=== PATIENT | female | born 1940 | race Caucasian/White ===

== ENCOUNTER 2019-03-31 06:00 | Outpatient (CLI) | payer MEDICARE, SELFPAY ==
--- NOTE | 2019-04-01 15:28 | ONCRAD EPV_ITS ---
Radiation Oncology Established Patient Visit Patient: DOUGLAS MR#: [id number] : 1940> Age: 78> Sex: Female> Account #: Dictated by: Dr. Conrad Mcbride Date of Service: 03/31/2019 Referring Physician(s) : Terell Castillo Diagnosis: C44.319 - Basal cell carcinoma of skin of other parts of face, Diagnosed 08/05/2018 (Active) Chief Complaint / History of Present Illness: This is a 78-year-old female with a large skin lesion in the right cheek that is pathologically confirmed to be basal cell carcinoma. The patient has declined surgical excision. Instead she received definitive RT with electron beam to a total dose of 55Gy completed on 10/26/2018. She comes in for a followup today. There is no evidence of skin lesion in the right cheek except some pigmentation and fibrosis. She is doing well with no complaints. Current Medications: Bumetanide, citalopram Hydrobromide, doxazosin Mesylate, gabapentin, glipiZIDE XL, hydroCHLOROthiazide, metoprolol Tartrate, simvastatin, synjardy XR, verapamil HCl ER, warfarin Sodium. Allergies: No Known Allergies Current Complaints / Review of Systems: Constitutional - Denies lack of appetite, fatigue, fever and night sweats. Eyes - Denies blurred vision. ENMT - Denies dysphagia, ear pain, mouth dryness, stomatitis and altered taste. Neck - Denies neck pain. Integumentary - Denies rash. Breasts - Denies pain. Cardiovascular - Complains of edema in both ankles and feet. Denies arrhythmias and chest pain. Respiratory - Denies cough, dyspnea and wheezing. Gastrointestinal - Complains of heartburn / dyspepsia. Denies abdominal pain, constipation, diarrhea, melena / GI bleeding, nausea and vomiting. Genitourinary (F) - Denies dysuria, frequency and urgency. Musculoskeletal - Denies arthritis, bone pain and joint pain. Neurologic - Complains of abnormal gait. Denies dizziness and headaches. Endocrine - Complains of Type 2 diabetes. Denies thyroid disease. Hematologic/Lymphatic - Denies tender or enlarged lymph nodes.. Vital Signs: Performed on 03/31/2019 8:54 AM BMI - 36.873 kg/m2 (high), Height - 62.00 in, Weight - 201.6 lbs, Temperature - 97.0 f, Pulse - 85, Respiration - 18, O2 Sat - 96 %, Pain - 0, Fatigue - 0 and BP - 150/ 75 mm(hg)(high/). Physical Exam: General: Alert and oriented x 3. No acute distress. HEENT: Normocephalic, atraumatic. No skin lesion in the right cheek and postauricular area except some pigmentation and fibrosis. Oral cavity is clear without lesions, masses or ulcers. NECK: Supple without supraclavicular or jugular lymphadenopathy. LUNGS: Clear to auscultation bilaterally without rales, rhonchi or wheeze. HEART: Regular rate and rhythm, normal S1 and S2 without murmur, gallop or rub. MUSCULOSKELETAL: No tenderness or percussion pain over the axial skeleton, scapulae or pelvis. ABDOMEN: Soft, nontender, nondistended without masses or organomegaly. Bowel sounds are present. EXTREMITIES: No peripheral edema is identified. Limited motor and sensory examination are grossly intact and symmetric bilaterally. NEUROLOGIC: Cranial nerves II ???XII are grossly intact. Normal sensation, strength 5/5 in all extremities, normal gait, no ataxia. Performance Status: 1 - No physically strenuous activity, but ambulatory and able to carry out light or sedentary work (e.g. office work, light house work). (ECOG) Lab: None pending. Pathology: basal cell carcinoma of skin Imaging: none pending Impression/plan: There is no clinical evidence of recurrence. The patient has not seen a mining technician yet after definitive RT. Again I encouraged her to follow up with a mining technician or her surgeon who diagnosed it. She will follow up with me in 4-6 months. Signed by: 04/01/2019 3:26:53 PM <<Signature on File>> CPT Code: CPT Code: Signed By: Dr. Conrad Mcbride, 04/01/2019 3:26:53 PM <<Signature on File>>
== END 2019-03-31 06:01 | disposition home or self-care (01) ==
LOC: ONCMED 16:10
PROVIDERS: Family Provider Student in an Organized Health Care Education/Training Program; Visit Provider Radiology Radiation Oncology
DX: Z08 Encounter for follow-up examination after completed treatment for malignant neoplasm (principal); Z85.828 Personal history of other malignant neoplasm of skin; Z92.3 Personal history of irradiation
CPT/HCPCS: 99213

== ENCOUNTER 2020-05-21 14:57 | Outpatient (CLI) | payer MEDICARE, MEDICAID, SELFPAY ==
[2020-05-21 16:36] LABS: Anion Gap 21.4 (5-19); Blood Urea Nitrogen 63 mg/dL (8-23); Calcium 10.1 mg/dL (8.5-10.5); Carbon Dioxide 29 mmol/L (22-29); Chloride 92 mmol/L (98-107); Glucose 90 mg/dL (65-115); Osmolality Calculated 306 mOsm/kg (285-295); Potassium 3.4 mmol/L (3.5-5.1); Sodium 139 mmol/L (136-145)
== END 2020-05-21 14:58 | disposition home or self-care (01) ==
LOC: LAB 15:06
PROVIDERS: PCP Internal Medicine; Visit Provider Internal Medicine
DX: I10 Essential (primary) hypertension (principal)
CPT/HCPCS: 80048